=== PATIENT | male | born 1955 | race Caucasian/White ===

== ENCOUNTER → 2017-10-24 05:59 | Outpatient (CLI) | payer OTHER, SELFPAY ==
--- NOTE | 2017-10-24 | NM_ITS ---
SPECT MYOCARDIAL PERFUSION SCAN, REST AND STRESS: EXERCISE STRESS: [facility] REVIEW QGS EF AND WALL MOTION EVALUATION: QPS - PERFUSION EVALUATION: HISTORY: Chest pain PROCEDURE: Rest imaging performed after administration of10.47 millicuries Tc MIBI. Dose administered at6:15 a.m., with imaging thereafter. Stress imaging was then performed following7 minutes of exercise stress. The patient achieved a heart [id number] with projected heart rate of152 . Resting BP145/81 with stress 190/90. At maximum exercise stress,30.5 millicuries Tc MIBI administered at7:55 a.m. with [id number] minutes thereafter. FINDINGS: Perfusion Evaluation: The single slice spect images as well as the [facility] bull's-eye data summary were reviewed. Wall Motion and Ejection Fraction Evaluation: Gated SPECT review and analysis used to evaluate these features. There is a 53 % left ventricular ejection fraction. There seems to be good wall motion Stress images reveal decreased activity in the apex and inferior wall with improved activity in the inferior wall with rest and persistent decrease in apex and rest. Gated images calculated ejection fraction of 53% with apical hypokinesis. 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 Regional wall motion abnormality present. High risk abnormal stress test
--- NOTE | 2017-10-24 07:24 | HMH.ITSHM ---
asa losartan-hctz allopurinol lipitor fish oil b12
== END ==
PROVIDERS: Family Provider Internal Medicine Adolescent Medicine; PCP Internal Medicine Adolescent Medicine; Visit Provider Nurse Practitioner Family
DX: R07.9 Chest pain, unspecified (principal); R06.09 Other forms of dyspnea; E78.5 Hyperlipidemia, unspecified; I10 Essential (primary) hypertension
CPT/HCPCS: 78452; 93017; A9502

== ENCOUNTER → 2017-10-25 08:35 | Outpatient (CLI) | payer OTHER, SELFPAY ==
[2017-10-25 11:03] LABS: Anion Gap 8.1 mEq/L (5-15); Blood Urea Nitrogen 9 mg/dL (7-18); Carbon Dioxide 28 mmol/L (21.0-32.0); Chloride 101 mmol/L (98-107); Creatinine,Serum 0.97 mg/dL (0.70-1.30); Estimated Glomerular Filt Rate 79 ml/min (>60); GFR (African American) 95 ML/MIN (>60); Glucose 109 mg/dL (74-106); Sodium 133 mmol/L (136-145)
[2017-10-25 11:04] LABS: Potassium 4.1 mmoL/L (3.5-5.1)
== END ==
PROVIDERS: Visit Provider Nurse Practitioner Family
DX: E87.6 Hypokalemia (principal)
CPT/HCPCS: 36415; 80048

== ENCOUNTER 2017-11-11 15:17 | Outpatient (RCR) | payer OTHER, SELFPAY | END 2018-01-30 12:58 | disposition home or self-care (01) | LOC: PT 15:17 | PROVIDERS: Family Provider Internal Medicine Adolescent Medicine; PCP Internal Medicine Adolescent Medicine; Visit Provider Internal Medicine | DX: Z95.5 Presence of coronary angioplasty implant and graft (principal) | CPT/HCPCS: 93798 ==

== ENCOUNTER → 2018-02-10 16:01 | Outpatient (CLI) | payer OTHER, SELFPAY ==
[2018-02-10 16:03] LABS: Microscopic, Urine URINE MICROSCOPIC (MICROSCOPIC)
[2018-02-10 16:19] LABS: Appearance,Urine CLEAR (Clear); Bilirubin,Urine Negative (Negative); Blood, Urine Negative (Negative); Color,Urine YELLOW (Yellow); Glucose,Urine (UA) Negative (Negative); Ketones,Urine Negative (Negative); Leukocyte Esterase,Urine Negative (Negative); Nitrate,Urine Negative (Negative); Protein,Urine Negative (Negative); Specific Gravity, Urine <= 1.005 (1.005-1.030); Urobilinogen,Urine 0.2 EU/dl (0.2)
[2018-02-10 16:23] LABS: Basophils % 0.4 % (0.1-2.0); Eosinophils # 0.4 K/mm3 (0.0-0.4); Eosinophils % 6.1 % (0.1-12.0); Hematocrit 51.8 % (42.0-52.0); Hemoglobin 17.6 g/dL (14.1-18.0); Lymphocytes # 1.7 K/mm3 (0.7-4.5); Lymphocytes % 23.6 K/mm3 (10-50); Mean Corpuscular Hemoglobin 34.1 pg (27.0-31.2); Mean Corpuscular Volume 100.3 fl (80-94); Mean Platelet Volume 7.2 fl (7.4-10.4); Monocytes # 0.6 K/mm3 (0.1-1.0); Monocytes % 9.2 % (1.7-9.3); Neutrophils # 4.3 K/mm3 (1.8-7.8); Neutrophils % 60.7 % (37.0-80.0); Platelet Count 189 K/mm3 (142-424); Red Blood Count 5.17 M/mm3 (4.60-6.20); Red Cell Distribution Width 13.6 % (11.5-17.5)
[2018-02-10 16:58] LABS: Alanine Aminotransferase 124 U/L (12-78); Albumin Level 3.9 gm/dL (3.4-5.0); Alkaline Phosphatase 86 U/L (46-116); Aspartate Amino Transferase 72 U/L (15-37); Bilirubin,Direct 0.2 mg/dL (0.0-0.2); Bilirubin,Indirect 0.6 mg/dL (0.0-0.9); Bilirubin,Total 0.8 mg/dL (0.2-1.0); Chol/HDL Ratio 3.3 (1-3.5); Cholesterol 143 mg/dL (140-200); HDL Cholesterol 44 mg/dL (27-67); LDL Cholesterol 71 mg/dL (0-130); Total Protein,Serum 7.7 gm/dL (6.4-8.2); Triglycerides 142 mg/dL (30-200); VLDL Cholesterol 28 mg/dL (0-40)
== END ==
PROVIDERS: Family Provider Internal Medicine Adolescent Medicine; PCP Internal Medicine Adolescent Medicine; Visit Provider Internal Medicine
DX: E78.4 Other hyperlipidemia (principal); D75.1 Secondary polycythemia; E78.5 Hyperlipidemia, unspecified; I11.9 Hypertensive heart disease without heart failure; I25.10 Atherosclerotic heart disease of native coronary artery without angina pectoris
CPT/HCPCS: 36415; 80061; 80076; 81001; 85025

== ENCOUNTER → 2018-02-18 13:10 | Outpatient (CLI) | payer OTHER, SELFPAY ==
--- NOTE | 2018-02-18 13:30 | US_ITS ---
US kidney retroperitoneal comp Ordering Physician: Lee Askew MD Patient Age: 62 years: Male HISTORY: ITS.REASON: htn TECHNIQUE: Ultrasound both kidneys COMPARISON : Ultrasound right upper quadrant August 2015 FINDINGS . No hydronephrosis nor mass either kidney.. Cortex well-maintained. Bilateral Adequate color Doppler flow both kidneys. Right kidney: 11.2 cm length as 5.2 cm x 6.5 cm. Left kidney: . 11.6 cm length x 6.4 cm x 6.2 cm. Limited images of the spleen appears satisfactory.. Likely fatty changes at the partially imaged liver ----IMPRESSION: 1. Unremarkable Kidneys bilateral. Appear normal in size & configuration bilaterally. No hydronephrosis nor mass. Cortex well-maintained
== END ==
PROVIDERS: Family Provider Internal Medicine Adolescent Medicine; PCP Internal Medicine Adolescent Medicine; Visit Provider Internal Medicine
DX: D75.1 Secondary polycythemia (principal); E78.5 Hyperlipidemia, unspecified; I11.9 Hypertensive heart disease without heart failure; I25.10 Atherosclerotic heart disease of native coronary artery without angina pectoris
CPT/HCPCS: 76770

== ENCOUNTER → 2018-08-25 09:53 | Outpatient (CLI) | payer OTHER, SELFPAY ==
[2018-08-25 10:27] LABS: Troponin I < 0.02 ng/ml (0.00-0.06)
[2018-08-25 10:38] LABS: Basophils % 0.4 % (0.1-2.0); Eosinophils # 0.4 K/mm3 (0.0-0.4); Eosinophils % 5.4 % (0.1-12.0); Lymphocytes # 1.7 K/mm3 (0.7-4.5); Lymphocytes % 21.7 % (10-50); Mean Corpuscular HGB Conc 35.3 g/dL (31.8-35.4); Mean Corpuscular Volume 96.3 fl (80-94); Mean Platelet Volume 7.4 fl (7.4-10.4); Monocytes # 0.5 K/mm3 (0.1-1.0); Monocytes % 6.6 % (1.7-9.3); Neutrophils # 5.1 K/mm3 (1.8-7.8); Neutrophils % 65.9 % (37.0-80.0); Platelet Count 192 K/mm3 (142-424); Red Cell Distribution Width 13.5 % (11.5-17.5); White Blood Count 7.7 K/mm3 (4.8-10.8)
[2018-08-25 11:08] LABS: Anion Gap 14.4 mEq/L (5-15); Blood Urea Nitrogen 9 mg/dL (7-18); Calcium 9.9 mg/dL (8.5-10.1); Carbon Dioxide 28 mmol/L (21.0-32.0); Chloride 104 mmol/L (98-107); Creatinine,Serum 0.83 mg/dL (0.70-1.30); Estimated Glomerular Filt Rate 94 ml/min (>60); GFR (African American) 114 ML/MIN (>60); Glucose 104 mg/dL (74-106); Potassium 4.4 mmoL/L (3.5-5.1); Sodium 142 mmol/L (136-145)
== END ==
PROVIDERS: Visit Provider Nurse Practitioner Family
DX: R07.9 Chest pain, unspecified (principal); E78.5 Hyperlipidemia, unspecified; I11.9 Hypertensive heart disease without heart failure; I25.10 Atherosclerotic heart disease of native coronary artery without angina pectoris
CPT/HCPCS: 36415; 80048; 84484; 85025

== ENCOUNTER → 2018-09-18 06:58 | Outpatient (CLI) | payer OTHER, SELFPAY ==
--- NOTE | 2018-09-18 06:59 | NM_ITS ---
SPECT MYOCARDIAL PERFUSION SCAN, REST AND STRESS: EXERCISE STRESS: [facility] REVIEW QGS EF AND WALL MOTION EVALUATION: QPS - PERFUSION EVALUATION: HISTORY: ANGINA PROCEDURE: Rest imaging performed after administration of10.64 millicuries Tc MIBI. Dose administered at7:10AM a.m., with imaging thereafter. Stress imaging was then performed following7 minutes 30 seconds of exercise stress. The patient achieved a heart [id number] with projected heart rate of118 . Resting BP157/101 with stress 205/100. At maximum exercise stress,32.5 millicuries Tc MIBI administered at8:50 a.m. with [id number] minutes thereafter. FINDINGS: Perfusion Evaluation: The single slice spect images as well as the [facility] bull's-eye data summary were reviewed. Wall Motion and Ejection Fraction Evaluation: Gated SPECT review and analysis used to evaluate these features. There is a 51 % left ventricular ejection fraction. There seems to be good wall motion SPECT images reveal uniform myocardial activity with both stress and rest IMPRESSION: No scintigraphic evidence of exercise-induced myocardial ischemia with normal ejection fraction normal wall motion
--- NOTE | 2018-09-18 08:42 | HMH.ITSHM ---
Current Home Medications as stated by this patient Yadiel Chávez or dental detail representative. [] losartan clopidogrel atorvastatin asa allopurinol
== END ==
PROVIDERS: PCP Internal Medicine Adolescent Medicine; Visit Provider Internal Medicine
DX: I20.8 Other forms of angina pectoris (principal); I25.10 Atherosclerotic heart disease of native coronary artery without angina pectoris
CPT/HCPCS: 78452; 93017; 93306; A9502

== ENCOUNTER → 2019-04-02 09:30 | Outpatient (CLI) | payer OTHER, SELFPAY ==
--- NOTE | 2019-04-02 09:32 | CA_ITS ---
APPROVED REPORT [employer] Window [employer]sman: CT Laterality: Bilateral Study Quality: Poor, Due to limited ultrasound windows. Indications: right carotid bruit Doppler Spectral Velocity Analysis ECA (R) 79.90/17.10 cm/s dICA (L) 41.60/14.80 cm/s pICA (R) 64.80/16.90 cm/s Nidhi (L) 44.40/15.50 cm/s dCCA (R) 91.80/14.00 cm/s pICA (L) 58.60/19.60 cm/s pCCA (R) 77.60/13.60 cm/s dCCA (L) 89.90/19.30 cm/s Vert (R) 51.60/12.30 cm/s pCCA (L) 107.00/22.40 cm/s Findings Duplex evaluation demonstrates stenosis of the right proximal internal carotid artery in the range of 20-49%. Right mid and distal ICA unable to visualize well due to shadowing. Duplex evaluation demonstrates stenosis of the left proximal internal carotid artery in the range of 20-49%. ICA/CCA ratio <4.0 Conclusion Duplex evaluation demonstrates stenosis of the right proximal internal carotid artery in the range of 20-49%. Right mid and distal ICA unable to visualize well due to shadowing. Duplex evaluation demonstrates stenosis of the left proximal internal carotid artery in the range of 20-49%. ICA/CCA ratio <4.0 Electronically signed by : Demar Mckeon MD 04/02/2019 18:12:00
== END ==
PROVIDERS: PCP Internal Medicine Adolescent Medicine; Visit Provider Physician Assistant
DX: R09.89 Other specified symptoms and signs involving the circulatory and respiratory systems (principal)
CPT/HCPCS: 93880

== ENCOUNTER → 2019-11-26 08:09 | Outpatient (CLI) | payer OTHER, SELFPAY ==
[2019-11-26 11:43] LABS: Coronavirus 19 IgG Antibody Negative (Negative); Coronavirus 19 IgM Antibody Negative (Negative)
== END ==
PROVIDERS: Visit Provider Internal Medicine Gastroenterology
DX: Z01.818 Encounter for other preprocedural examination (principal)
CPT/HCPCS: 36415; 86328

== ENCOUNTER 2019-11-29 06:55 | Day surgery (SDC) | payer OTHER, SELFPAY ==
[2019-11-23 09:45] VITALS: BMI 27.6
[2019-11-29 07:13] VITALS: BP 140/76; PULSE 73; RESP 18; TEMP 36.6; O2SAT 98
[2019-11-29 08:02] VITALS: O2SAT 97
--- NOTE | 2019-11-29 08:02 | HMH.PROC ---
[facility] Procedure Note Procedure Note:: Colonoscopy Procedure Report: Colonoscopy with cold snare polypectomy and snare cautery polypectomy Endoscopist: Deejay Chavez II, MD Referring physician: WILLIS Portillo Date of Procedure: November 29, 2019 Equipment: Olympus 180 variable stiffness pediatric colonoscope Sedation: MAC sedation Indication: Mr. Chávez is a 64-year-old gentleman who is here for follow-up screening/surveillance colonoscopy secondary to a personal history of colon polyps. The patient did have a colonoscopy 7 years ago (Dr. Constantine Middleton) at which time 5 colon polyps were removed. The patient reports no abdominal pain, weight loss, change in his bowel habits or rectal bleeding. He reports no family history of colon cancer. He does have intermittent diarrhea/bowel urgency which he attributes to his prior cholecystectomy. Procedure: Prior to the procedure, a history and physical exam was performed, and patient's medications and allergies were reviewed. The risks, benefits and alternatives of the sedation and procedure were discussed with the patient. All questions were answered and informed consent was obtained. The patient was brought to the procedure room. Patient identification and proposed procedure were verified by the physician and the nurse. The patient was placed in a left lateral decubitus position and the scope was passed under direct vision. Throughout the procedure, the patient's blood pressure, pulse, and oxygen saturations were monitored continuously. The colonoscopy was accomplished without difficulty. The patient tolerated the procedure well. Findings: On digital rectal examination there was normal rectal tone. There were no external hemorrhoids. The prostate was 2+, smooth, soft, symmetric without nodules. The colonoscope was introduced through the anal canal to the rectum and advanced to the cecum. The ileocecal valve and appendiceal orifice were identified. The scope was advanced a short distance into the ileum which appeared grossly normal. The scope was then withdrawn into the colon. The cecum was normal. There were a total of 9 colon polyps removed (ascending x2 (3 and 4 mm), transverse x1 (5 mm), descending x4 (3, 4, 4 and 8 mm) and sigmoid x2 (4 and 11 mm)). All of these were removed via cold snare polypectomy except for the 11 mm polyp that was on a stalk and this was removed via snare cautery. There were scattered diverticuli throughout the descending and sigmoid colon (LEFT colon). The rectum itself was normal. Upon retroflexion within the rectum there were grade 1-2 internal hemorrhoids. The preparation was excellent throughout with [place] Preparation Score of 9. The cecal time was 13 minutes. Impression: 1. Colonic polyps x9 (ranging in size from 3 to 11 mm) 2. Left-sided diverticulosis 3. Grade 1-2 internal hemorrhoids Plan: I will follow up the polyp pathology and recommend repeat colonoscopy again in 2-3 years based upon the polyp histology. I would encourage fiber supplementation on a long-term daily maintenance basis.
[2019-11-29 08:35] VITALS: BP 114/71; PULSE 65; RESP 16; TEMP 36.1; O2SAT 95
[2019-11-29 08:45] VITALS: BP 127/76; PULSE 66; RESP 16; O2SAT 96
--- NOTE | 2019-11-29 08:49 | P.PN_ITS ---
[facility] Anesthesia Checklist - Structural Data Admitted From: Home Planned Operative Procedure/s: colonoscopy Consent for Planned Operative Procedure(s) Verified: Yes - Airway Assessment C-Spine Mobility Assessed: Yes TMJ Mobility Assessed: Yes Dentition: Good Dentition - Neurological Assessment Level of Consciousness: Awake, Alert, Appropriate - Anesthesia Plan Anesthesia Risk discussed: Yes Anesthesia Plan: Verified ASA Class: II Anesthesia Type: MAC [facility] History I have reviewed the patient's past medical history: Yes Medical History: Reports:: Coronary Artery Disease, Hyperlipidemia, Hypertension Denies:: Cancer, Diabetes Mellitus Type 1, Diabetes Mellitus Type 2, Internal Pacemaker, MRSA, Seizures *Have you ever received a pneumonia vaccine?: No *Have you received a flu vaccine this season?: No Other Medical History: Reports: Other Anesthesia experience/problems:: none Other Surgeries: Yes: Cardiac Catheterization, Cholecystectomy, Coronary Stent, Other (Neck Fusion). No: Pacemaker Amputation: No Fractures: No - *Social History Educational Level: Completed High School Smoking Status: Never smoker Alcohol Intake: current Alcohol Intake Frequency:: holidays/special occasions only Substance Use Type: denies use *Occupational Status:: retired Housing: house Household Members: spouse *Travel in the last 8 weeks: None Family Hx:: Coronary Artery Disease
[2019-11-29 08:55] VITALS: BP 132/86; PULSE 59; RESP 16; O2SAT 96
[2019-11-29 09:05] VITALS: BP 132/89; PULSE 62; RESP 14; TEMP 36.1; O2SAT 97
== END 2019-11-29 09:16 | disposition home or self-care (01) ==
LOC: OUTP 06:57
PROVIDERS: PCP Internal Medicine Adolescent Medicine; Visit Provider Internal Medicine Gastroenterology
PROC: 0DJD8ZZ Inspection of Lower Intestinal Tract, Via Natural or Artificial Opening Endoscopic (ICD-10-PCS; CPT 45378; principal; 2019-11-29 08:00)
DX: K63.5 Polyp of colon (principal); K57.30 Diverticulosis of large intestine without perforation or abscess without bleeding; K64.0 First degree hemorrhoids; Z12.11 Encounter for screening for malignant neoplasm of colon; Z86.010 Personal history of colon polyps; I25.10 Atherosclerotic heart disease of native coronary artery without angina pectoris; I10 Essential (primary) hypertension; E78.5 Hyperlipidemia, unspecified; M10.9 Gout, unspecified; Z90.49 Acquired absence of other specified parts of digestive tract; Z95.818 Presence of other cardiac implants and grafts; Z79.899 Other long term (current) drug therapy
CPT/HCPCS: 45385; J2704

== ENCOUNTER → 2020-05-12 09:03 | Outpatient (CLI) | payer OTHER, SELFPAY ==
--- NOTE | 2020-05-12 09:04 | CA_ITS ---
APPROVED REPORT Senior Financial: Paloma Dodd RVT Laterality: Bilateral Study Quality: Adequate Indications: right bruit Doppler Spectral Velocity Analysis ECA (R) 62.70/9.10 cm/s ECA (L) 79.80/15.20 cm/s dICA (R) 91.40/28.10 cm/s dICA (L) 78.80/31.30 cm/s Nidhi (R) 81.60/26.80 cm/s Nidhi (L) 68.00/23.00 cm/s pICA (R) 75.40/16.30 cm/s pICA (L) 24.40/6.80 cm/s dCCA (R) 110.10/17.10 cm/s dCCA (L) 82.90/18.30 cm/s pCCA (R) 104.80/10.70 cm/s pCCA (L) 73.80/12.40 cm/s Vert (R) 37.20/7.20 cm/s Vert (L) 38.70/11.30 cm/s ICA/CCA 0.83 ICA/CCA 0.95 Findings Study suggests 20-49% stenosis of the right internal cartoid artery unchanged from the 04/02/19 study. Study suggests 20-49% stenosis of the left internal cartoid artery unchanged from the 04/02/19 study. Antegrade flow seen bilateral vertebral arteries. 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 Study suggests 20-49% stenosis of the left internal cartoid artery unchanged from the 04/02/19 study. Antegrade flow seen bilateral vertebral arteries. Electronically signed by : Demar Mckeon MD 05/12/2020 16:03:55
== END ==
PROVIDERS: PCP Internal Medicine Adolescent Medicine; Visit Provider Urology
DX: I65.23 Occlusion and stenosis of bilateral carotid arteries (principal); R09.89 Other specified symptoms and signs involving the circulatory and respiratory systems
CPT/HCPCS: 93880

== ENCOUNTER 2020-09-24 11:47 | Emergency (ER) | payer OTHER, SELFPAY ==
[2020-09-24 11:52] VITALS: BP 132/82; PULSE 81; RESP 17; TEMP 36.9; O2SAT 96; BMI 27.6
--- NOTE | 2020-09-24 12:04 | HMH.EDUTC ---
[facility] [place] Clinical Impression: Bronchitis Disposition: Home, Self-Care Condition on Discharge: Good Instructions: DI for Acute Bronchitis Additional Instructions: You have been tested for COVID19. Please isolate as if you are positive until those results are received. Follow up with Dr Esteves if you are not improving. Prescriptions: Guaifenesin/Dextromethorphan [Mucinex Dm ER 1,200-60 mg Tab] 1 tab PO BID 10 Days #20 tab Transmission Status: Pending to [email or web address] # predniSONE [Prednisone 20mg Tab] 20 mg PO BID 5 Days #10 tab Transmission Status: Pending to [email or web address] # Azithromycin [Zithromax 250mg tab] 250 mg PO DIRECTED #6 tab Transmission Status: Pending to [email or web address] # Referrals: Ulises Esteves MD [Primary Care Provider] - Time of Disposition: 12:12 Medical Decision Making - Joe Inquiry Pt receiving controlled substance: No [facility] [place]PI - General Stated complaint: Cough ZAMBRANO ears hurt Time Seen by Provider: 09/24/20 12:04 - History of Present Illness Provider Complaint: Cough, congestion, body aches/chills/possible fever last night. Slept in recliner due to cough. Does not smoke but gets bronchitis once a year. Cough is productive. No vomiting or diarrhea. No known exposure to COVID19. Onset (ago): day(s) (1) Location: chest Radiation: non-radiation Relieving factors: none Exacerbating factors: none Associated symptoms: cough, fever/chills, headaches, malaise Treatments prior to arrival: none - Related Data Home Medications Medication Instructions Recorded Confirmed Aspirin [Aspir 81] 81 mg PO DAILY 10/23/17 05/19/20 [place]-3 Fatty Acids [Fish Oil] 300 mg PO DAILY 10/23/17 05/19/20 allopurinoL [Allopurinol 100mg 100 mg PO DAILY 10/23/17 05/19/20 tablet] atorvastatin 20 mg tablet 20 mg PO DAILY tab 10/30/17 05/19/20 Multivitamin [Multivitamins] 1 tab PO DAILY 11/23/19 05/19/20 Previous Rx's Medication Instructions Recorded sildenafil (pulm.hypertension) 20 20 mg PO DAILY PRN #90 tab 03/26/19 mg tablet hydrochlorothiazide 12.5 mg tablet See Rx Instructions .ROUTE 08/16/20 .COMPLEX #30 tab losartan 100 mg tablet See Rx Instructions .ROUTE 08/16/20 .COMPLEX #30 tab Azithromycin [Zithromax 250mg 250 mg PO DIRECTED #6 tab 09/24/20 tab] Guaifenesin/Dextromethorphan 1 tab PO BID 10 Days #20 tab 09/24/20 [Mucinex Dm ER 1,200-60 mg Tab] predniSONE [Prednisone 20mg 20 mg PO BID 5 Days #10 tab 09/24/20 Tab] Allergies Allergy/AdvReac Type Severity Reaction Status Date / Time promethazine [From PHENERGAN] Allergy Intermediate SKIN Verified 05/19/20 10:28 [facility] History - Hepatitis A Screen Attestation statement:: This patient has been screened for Hepatitis A risk factors. I have reviewed the patient's past medical history: Yes Medical History: Reports:: Coronary Artery Disease, Hyperlipidemia, Hypertension Denies:: Cancer, Diabetes Mellitus Type 1, Diabetes Mellitus Type 2, Internal Pacemaker, MRSA, Seizures Other Medical History: Reports: Other Comment: Gout Other Surgeries: Yes: Cardiac Catheterization, Cholecystectomy, Coronary Stent, Other (Neck Fusion). No: Pacemaker Amputation: No Fractures: No - Social History Smoking Status: Never smoker Alcohol Intake: current Alcohol Intake Frequency:: holidays/special occasions only Substance Use Type: denies use Occupational Status: retired Housing: house Household Members: spouse Family Hx:: Coronary Artery Disease ROS Obtained: Yes All systems reviewed & no additional complaints - Constitutional Constitutional: Reports body ache, Reports chills, Reports fever(s), Reports headache(s), Reports malaise - ENT Ears, Nose, Mouth, and Throat: Reports nasal congestion - Respiratory Respiratory: Reports chest congestion, Reports cough Physical Exam - General General appearance: alert, in no apparent distress - Hea
[2020-09-24 12:10] VITALS: BP 132/82; PULSE 81; RESP 17; TEMP 36.9; O2SAT 96
--- NOTE | 2020-09-24 16:50 | PC.NURSE ---
Pt was called and given results of Covid test Positive.
== END 2020-09-24 12:14 | disposition home or self-care (01) ==
PROVIDERS: Emergency Provider Physician Assistant; PCP Internal Medicine Adolescent Medicine
DX: U07.1 COVID-19 (principal); J20.9 Acute bronchitis, unspecified; I25.10 Atherosclerotic heart disease of native coronary artery without angina pectoris; I10 Essential (primary) hypertension; E78.5 Hyperlipidemia, unspecified; Z79.899 Other long term (current) drug therapy
CPT/HCPCS: 99202; G0463; U0003

== ENCOUNTER → 2020-10-13 08:15 | Outpatient (CLI) | payer OTHER, SELFPAY ==
[2020-10-13 08:41] LABS: Basophils % 0.5 % (0.1-2.0); Eosinophils # 0.3 K/mm3 (0.0-0.4); Hematocrit 47.2 % (42.0-52.0); Hemoglobin 16.6 g/dL (14.1-18.0); Lymphocytes # 1.4 K/mm3 (0.7-4.5); Lymphocytes % 20.1 % (10-50); Mean Corpuscular HGB Conc 35.2 g/dL (31.8-35.4); Mean Corpuscular Hemoglobin 34.6 pg (27.0-31.2); Mean Corpuscular Volume 98.2 fl (80-94); Mean Platelet Volume 7.4 fl (7.4-10.4); Monocytes # 0.4 K/mm3 (0.1-1.0); Monocytes % 6.2 % (1.7-9.3); Neutrophils # 4.6 K/mm3 (1.8-7.8); Neutrophils % 68.2 % (37.0-80.0); Platelet Count 189 K/mm3 (142-424); Red Blood Count 4.81 M/mm3 (4.60-6.20); Red Cell Distribution Width 13.2 % (11.5-17.5); White Blood Count 6.7 K/mm3 (4.8-10.8)
[2020-10-13 09:11] LABS: Alanine Aminotransferase 34 U/L (12-78); Albumin Level 4.3 g/dl (3.5-5.0); Albumin/Globulin Ratio 1.6 (1.1-1.8); Alkaline Phosphatase 85 U/L (38-126); Anion Gap 9.4 mEq/L (5-15); Aspartate Amino Transferase 36 U/L (17-59); Bilirubin,Total 1.1 mg/dl (0.2-1.3); Blood Urea Nitrogen 5 mg/dl (9-20); Calcium 9.9 mg/dl (8.4-10.2); Carbon Dioxide 30 mmol/L (22.0-30.0); Chloride 105 mmol/L (98-107); Chol/HDL Ratio 4.9 (1-3.5); Cholesterol 127 mg/dl (140-200); Estimated Glomerular Filt Rate 97 ml/min (>60); GFR (African American) 118 ML/MIN (>60); Globulin 2.7 g/dL (1.3-3.2); Glucose 95 mg/dl (74-100); HDL Cholesterol 26 mg/dl (40-60); Potassium 4.4 mmoL/L (3.5-5.1); Sodium 140 mmol/L (136-145); Triglycerides 186 mg/dl (30-150); Uric Acid 5.2 mg/dl (3.5-8.5); VLDL Cholesterol 37 mg/dL (0-40)
[2020-10-13 09:22] LABS: Direct LDL Cholesterol 62.52 mg/dL (100-129)
[2020-10-13 10:00] LABS: Vitamin B12 985 pg/mL (239-931)
== END ==
PROVIDERS: Visit Provider Nurse Practitioner Family
DX: I25.10 Atherosclerotic heart disease of native coronary artery without angina pectoris (principal); I10 Essential (primary) hypertension; E79.0 Hyperuricemia without signs of inflammatory arthritis and tophaceous disease; E53.8 Deficiency of other specified B group vitamins
CPT/HCPCS: 36415; 80053; 80061; 82607; 84550; 85025

== ENCOUNTER 2020-12-29 07:39 | Emergency (ER) | payer MEDICARE, OTHER, SELFPAY ==
[2020-12-29] VITALS (8 sets, daily range): BP systolic 118–163; BP diastolic 80–98; PULSE 56–70; RESP 16; TEMP 36.6; O2SAT 94–98; BMI 27.6
--- NOTE | 2020-12-29 07:39 | ECG_ITS ---
APPROVED REPORT Exam: Resting ECG HR:63 bpm ECG Measurements Heart Rate 63 AXES KS 174 P 22 QRSd 96 QRS -23 QT 432 T 27 QTc 442 Conclusion Normal sinus rhythm Moderate voltage criteria for LVH, may be normal variant Borderline ECG Electronically signed by : Ulises Esteves, 12/31/2020 21:08:32
--- NOTE | 2020-12-29 07:47 | XR_ITS ---
PROCEDURE: XR CHEST PORTABLE CLINICAL HISTORY: CHEST PAIN COMPARISON: CR [id number] XR chest portable from 10/23/2017 FINDINGS: The cardiomediastinal silhouette and pulmonary vascularity are within normal limits. Minimal atelectatic changes are present in the left lung base. The remaining lungs are clear. No acute bony abnormalities. IMPRESSION: Minimal left basilar atelectasis Dictated by: Demar Mckeon MD 12/29/2020 09:58 Demar Mckeon MD in [place] 12/29/2020 09:58
--- NOTE | 2020-12-29 07:55 | HMH.EDGENADL ---
ED Disposition Clinical Impression: Chest pain Qualifiers: Chest pain type: unspecified Qualified Code(s): R07.9 - Chest pain, unspecified Disposition: Home, Self-Care Condition on Discharge: Good Instructions: DI for Atypical Chest Pain Referrals: Provider,MD Shanique [Referring] - 3 days Lee Askew MD [Staff Physician] - 3 days Time of Disposition: 11:15 - Critical Care Critical Care Time: No Attestation: On 12/29/20, the high probability of a clinically significant, sudden or life threatening deterioration of the following system(s) required my full and direct attention, intervention and personal management. The time I documented below is in addition to time spent performing reported procedures but includes the following listed in this critical care notation. Medical Decision Making - Medical Records Medical records reviewed: Yes: I reviewed the patient's medical records. - Joe Inquiry Pt receiving controlled substance: No Vital Signs: 12/29/20 07:42 12/29/20 08:30 Temperature 97.8 F Temperature Source Oral Pulse Rate 62 Pulse Rate [Radial] 70 Respiratory Rate 16 16 Blood Pressure 127/80 Blood Pressure [Right Arm] 163/98 H Blood Pressure Mean 95 Blood Pressure Mean [Right Arm] 119 Blood Pressure Position [Right Arm] Sitting 02 Sat by Pulse Oximetry 98 96 Oxygen Delivery Method Room Air Room Air - Lab Data Lab results reviewed: Yes: I reviewed the patient's lab results. Lab Results 12/29/20 07:49: WBC 6.9, RBC 5.13, Hgb 17.8, Hct 50.0, MCV 97.5 H, MCH 34.7 H, MCHC 35.6 H, RDW 13.8, Plt Count 167, MPV 8.2, Neut % (Auto) 62.2, Lymph % (Auto) 24.9, [place] % (Auto) 7.3, Eos % (Auto) 5.0, Baso % (Auto) 0.6, Neut # (Auto) 4.3, Lymph # (Auto) 1.7, [place] # (Auto) 0.5, Eos # (Auto) 0.4, Baso # (Auto) 0.0 12/29/20 07:49: Sodium 138, Potassium 3.8, Chloride 104, Carbon Dioxide 26, Anion Gap 11.8, BUN 5 L, Creatinine 0.80, Estimated Creat Clear 102, Estimated GFR 97, Est GFR ( Amer) 117, Glucose 121 H, Calcium 8.9, Troponin I < 0.01 12/29/20 10:10: Troponin I < 0.01 Result diagrams: 12/29/20 07:49 12/29/20 07:49 Orders (Tests/Meds): ED MEDICATIONS Discontinued Medications Generic Name Dose Route Start Last Admin Trade Name Teofilo PRN Reason Stop Dose Admin Aspirin 324 mg 12/29/20 07:53 12/29/20 07:56 Aspirin 81mg Chewable Tablet PO 12/29/20 07:54 324 mg ONCE ONE Administration ORDERS Category Date Time Status Troponin I Q3H Lab 12/29/20 14:00 Ordered - Radiology Data #1 Image(s): Chest Image Reviewed: Yes I reviewed the patient's radiology results Preliminary Findings: Normal/NAD - ECG Data Tracing #1 I reviewed this ECG and interpreted as documented below: Normal sinus rhythm, 63 bpm, no ST elevation or depression, no ectopy, normal intervals. ECG initial impression date: 12/29/20 ECG initial impression time: 07:40 - CHUY Score for Non-Stemi Age of Patient: 60-69 years old Heart Rate: 50-69 bpm Systolic Blood Pressure: 160-199 mmHg Serum Creatinine: 0.80-1.19 mg/dl CHF [place] Class: I-No CHF Other Risk Factors: None Non-Stemi Risk Score: 78 Medical Decision Narrative: 65yo M evaluated for epigastric chest pain. Patient is in no acute distress on initial evaluation. He believes his symptoms are related to heartburn. Routine cardiac work-up is been initiated. EKG is reviewed as above and unremarkable. Chest x-ray is benign. CBC, BMP, troponin are all within normal limits. Will repeat troponin at 2 hours. Patient is already established with Dr. Askew and has a local PCP. Repeat troponin is negative. Patient seema asymptomatic at this time. He is appropriate stable for discharge home. Follow-up PCP/Dr. Askew next week. General Adult HPI - General Chief complaint: Chest Pain Stated complaint: chest pain Time Seen by Provider: 12/29/20 07:55 Mode of Arrival: Ambulatory Limitations: No Limitations Description
[2020-12-29 07:58] LABS: Basophils % 0.6 % (0.1-2.0); Eosinophils # 0.4 K/mm3 (0.0-0.4); Hemoglobin 17.8 g/dL (14.1-18.0); Lymphocytes # 1.7 K/mm3 (0.7-4.5); Lymphocytes % 24.9 % (10-50); Mean Corpuscular HGB Conc 35.6 g/dL (31.8-35.4); Mean Corpuscular Hemoglobin 34.7 pg (27.0-31.2); Mean Corpuscular Volume 97.5 fl (80-94); Mean Platelet Volume 8.2 fl (7.4-10.4); Monocytes # 0.5 K/mm3 (0.1-1.0); Monocytes % 7.3 % (1.7-9.3); Neutrophils # 4.3 K/mm3 (1.8-7.8); Neutrophils % 62.2 % (37.0-80.0); Platelet Count 167 K/mm3 (142-424); Red Blood Count 5.13 M/mm3 (4.60-6.20); Red Cell Distribution Width 13.8 % (11.5-17.5); White Blood Count 6.9 K/mm3 (4.8-10.8)
[2020-12-29 08:11] LABS: Anion Gap 11.8 mEq/L (5-15); Blood Urea Nitrogen 5 mg/dl (9-20); Calcium 8.9 mg/dl (8.4-10.2); Carbon Dioxide 26 mmol/L (22.0-30.0); Chloride 104 mmol/L (98-107); Creatinine Clearance Estimated 102 mL/min (50-200); Estimated Glomerular Filt Rate 97 ml/min (>60); GFR (African American) 117 ML/MIN (>60); Glucose 121 mg/dl (74-100); Potassium 3.8 mmoL/L (3.5-5.1); Sodium 138 mmol/L (136-145)
[2020-12-29 08:25] LABS: Troponin I < 0.01 ng/ml (0.00-0.034)
[2020-12-29 11:11] LABS: Troponin I < 0.01 ng/ml (0.00-0.034)
== END 2020-12-29 11:25 | disposition home or self-care (01) ==
PROVIDERS: Emergency Provider Family Medicine; PCP Internal Medicine Adolescent Medicine
DX: R07.9 Chest pain, unspecified (principal); R10.13 Epigastric pain; I25.10 Atherosclerotic heart disease of native coronary artery without angina pectoris; E78.5 Hyperlipidemia, unspecified; I10 Essential (primary) hypertension; Z86.16 Personal history of COVID-19
CPT/HCPCS: 71045; 80048; 84484; 85025; 93005; 99283

== ENCOUNTER → 2021-01-11 06:09 | Outpatient (CLI) | payer MEDICARE, OTHER, SELFPAY ==
--- NOTE | 2021-01-11 06:11 | CA_ITS ---
APPROVED REPORT EXAM: Comprehensive 2D, Doppler, and color-flow Echocardiogram Loading Unit Operator Powder Charging: Paloma Dodd RVT Ht: 6 ft 2 in Wt: 217lbs BSA: 2.25 BP: 123/74 mmHg Indications: CP,CAD,POLYCYTHEMIA,HLD,HTN 2D Dimensions LVOT 2.45 cm (M/F) 1.5-2.5 LA Volume 20.50 mL LA Volume Index 9.11 mL/m2 (M/F) 16-34 M-Mode Dimensions RVDd 1.60 cm (0.9-2.6) LA Diam 3.64 cm (1.9-4.0) LVDd 4.86 cm (3.5-5.7) Ao Diam 3.41 cm (2.0-3.7) LVDs 3.15 cm (3.5-5.7) IVSd 0.84 cm (0.6-1.1) PWd 1.25 cm (0.6-1.1) EF (Teich) 64.40% FS 35.20% EDV (Teich) 110.70 mL TAPSE 2.13 (<1.7) ESV (Teich) 39.40 mL LV Diastology E Decel Time 227.00 (160-240 msec) E/A Ratio 0.7 MED E' 6.60 (< 7 cm/sec) E'/MED E' Ratio 6.92 (>14) LAT E' 10.20 (<10 cm/sec) E/LAT E' Ratio 4.48 (>14) Aortic Valve AO Peak GR. 2.50 mmHg Mitral Valve MV E Max Fuad. 46.00 (40-130 cm/s) MV A Velocity 62.00 (40-130 cm/s) E/A Ratio 0.74 MV Decel. Time 227.00 (160-240 ms) MV PHT 66.00 ms Pulmonary Valve PV Peak Velocity 74.00 (50-150 cm/s) Tricuspid Valve TR P. Velocity 170.00 cm/s RAP Estimate 10.00 mmHg RVSP 21.60 mmHg Left Ventricle Left atrium is mildly enlarged, left ventricle is normal size, mild concentric left ventricular hypertrophy, visually estimated ejection fraction 55% with no regional wall motion abnormality, grade 1 diastolic dysfunction seen without tissue Doppler evidence of raise left atrial pressure. Right Ventricle Right atrium and right ventricle are normal size and contractility. Aortic Valve Aortic valve is minimally thickened and fibrosed, there is no aortic stenosis or aortic insufficiency. Mitral Valve Mitral valve grossly normal, there is trace mitral regurgitation. Tricuspid Valve Tricuspid valve grossly normal, there is trace tricuspid regurgitation, tricuspid regurgitation jet velocity is inadequate for calculation of the right ventricular systolic pressure. Pulmonic Valve Pulmonic valve is poorly visualized. Great Vessels Aortic root is normal size. Inferior vena cava is normal size with normal inspiratory collapse. Pericardium No significant pericardial effusion noted. Conclusion 1. Mildly enlarged left atrium, normal left ventricular size, mild concentric left ventricular hypertrophy, visually estimated ejection fraction 55% with no regional wall motion abnormality, grade 1 diastolic dysfunction seen without tissue Doppler evidence of raise left atrial pressure. 2. Trace mitral and tricuspid regurgitation. 3. No significant pericardial effusion noted. Electronically signed by : Tien Jacinto MD 01/12/2021 13:06:22
--- NOTE | 2021-01-11 06:11 | NM_ITS ---
APPROVED REPORT Exam: Nuclear Stress Test Indication: chest pain Patient Location: Outpatient Stress Tech: Bianca Jones [place] Tech:NATALIA Santoyo RT(R)(N) Ht: 6 ft 2 in Wt: 215 lbs HR: 71 bpm BP: 139/82 mmHg BSA: 2.24 m2 BMI: 27.6 Procedure: Patient received a 0.4 mg of intravenous Lexiscan, resting heart rate 71 bpm, resting blood pressure 139/82 mmHg, with Lexiscan maximum heart rate achived was 96 bpm which is Less than 85 % of the maximum predicted heart rate and blood pressure was 157/92 mmHg. With Lexiscan, patient denied any complaint of chest pain. Electrocardiogram Resting electrocardiogram showed sinus rhythm, with Lexiscan there is less than 1.[address] segment depression noted from the baseline EKG. The EKG portion of the Lexiscan is nondiagnostic. Cardiac Stress and Resting SPECT Images: Cardiac Stress and Resting SPECT images were obtained using technetium 99m Myoview 31.0 mCi stress and 10.29 mCi at rest. Gated SPECT for analysis of segmental wall motion and calculation of the ejection fraction also done. Prone images were also obtained. Cardiac stress and resting SPECT images show uniform myocardial activity without segmental perfusion abnormality, computer derived ejection fraction is 51% with no regional wall motion abnormality, right ventricle is normal size and contractility. Conclusion: 1. The EKG portion of the Lexiscan Myoview is nondiagnostic. 2. No scintigraphic evidence of reversible ischemia seen, computer derived ejection fraction is 51% with no regional wall motion abnormality, right ventricle is normal size and contractility 3. Normal Lexiscan Myoview study. Electronically signed by : Tien Jacinto MD 01/11/2021 13:59:18
--- NOTE | 2021-01-11 06:11 | CA_ITS ---
APPROVED REPORT Exam: Pharmacologic Technologist: Bianca Jones, Ht: 6 ft 2 in Wt: 217 lbs BSA: 2.25 m2 HR: 67 bpm BP: 139/82 mmHg Medical History Medications: Aspirin,,,,, Losartan,,,,, Allopurinol,,,,, HCTZ,,,,, AtorvaASTATIN,,,,, SilDENAFIL,,,,, Stress Test Details Test: LEXISCAN HR Resting HR: 71 bpm Max Heart Rate (APMHR): 155.145393 bpm Max HR Achieved: 96 bpm Target HR (85% APMHR): 131.814029 bpm % of APMHR: 61.94 Recovery HR: 77 bpm BP Resting BP: 139/82 mmHg Max BP: 157/92 mmHg Recovery BP: 152.0/89.0 mmHg ECG Resting ECG: NSR, poor R wave progression Clinical Exercise duration: 04:00 min Highest Stage Achieved: Exercise capacity: 1.0 METs Stress ECG Conclusion Symptoms: Mild chest tightness, Mild SOA and lightheaded. Arrythmias/Ectopy: None ST-T Chages: No significant changes. Conclusion: Unremarkable Lexiscan stress. Myoview images reported separately. Electronically signed by : Tien Jacinto MD 01/11/2021 13:56:08
== END ==
PROVIDERS: PCP Internal Medicine Adolescent Medicine; Visit Provider Urology
DX: E78.5 Hyperlipidemia, unspecified (principal); I11.9 Hypertensive heart disease without heart failure; I25.10 Atherosclerotic heart disease of native coronary artery without angina pectoris; N52.9 Male erectile dysfunction, unspecified; R09.89 Other specified symptoms and signs involving the circulatory and respiratory systems
CPT/HCPCS: 78452; 93017; 93306; A9502; J2785

== ENCOUNTER → 2022-02-12 08:16 | Outpatient (CLI) | payer MEDICARE, OTHER, SELFPAY | PROVIDERS: PCP Internal Medicine Adolescent Medicine; Visit Provider Internal Medicine Gastroenterology | DX: Z01.812 Encounter for preprocedural laboratory examination (principal); Z20.822 Contact with and (suspected) exposure to COVID-19; Z12.11 Encounter for screening for malignant neoplasm of colon | CPT/HCPCS: C9803; U0003; U0005 ==

== ENCOUNTER 2022-02-14 07:53 | Day surgery (SDC) | payer MEDICARE, OTHER, SELFPAY ==
[2022-02-12 12:16] VITALS: BMI 28.2
[2022-02-14 08:16] VITALS: BP 118/71; PULSE 56; RESP 18; TEMP 36.3; O2SAT 98
--- NOTE | 2022-02-14 09:07 | HMH.SCOPE ---
Procedure: Date: 02/14/22 Patient Date of :: 1955 Procedure Performed:: Colonoscopy & poypectomy with snare Indications:: History of polyps Performing Provider:: Cindy Reagan MD Referring Provider:: Raven Martinez APRN Sedation:: Propofol Procedure:: After placing the patient in the left lateral decubitus position, the colonoscopy was gently inserted into the rectum and under direct visualization advanced to the cecum which was identified by transillumination in the right lower quadrant, identification of the ileocecal valve, appendiceal orifice, and cecal strap. Color, texture, mucosa, and anatomy of the colon were carefully examined with the scope. Findings:: Anal canal: normal Rectum: normal, minor hemorrhoids Sigmoid colon: normal without polyps or inflammatory changes, small 0.5cm polyp identified and removed with snare Descending colon: normal without polyps or inflammatory changes Splenic flexure: normal Transverse colon: normal without polyps or inflammatory changes Hepatic flexure: normal Ascending colon: normal without polyps or inflammatory changes Cecum: normal Terminal ileum: not visualized Impression: Sigmoid polyp Minor hemorrhoids Specimens:: Sigmoid polyp Recommendations:: Repeat examination in about THREE years or so, sooner if clinically indicated Complications:: None Estimated blood obtained (mL): 0
[2022-02-14 09:13] VITALS: BP 105/66; PULSE 69; RESP 18; TEMP 36.2; O2SAT 97
[2022-02-14 09:23] VITALS: BP 104/70; PULSE 56; RESP 18; TEMP 36.2; O2SAT 96
[2022-02-14 09:33] VITALS: BP 109/70; PULSE 62; RESP 18; TEMP 36.2; O2SAT 97
[2022-02-14 09:43] VITALS: BP 116/76; PULSE 54; RESP 18; TEMP 36.2; O2SAT 99
[2022-02-14 09:55] VITALS: BP 116/76; PULSE 54; RESP 18; TEMP 36.2; O2SAT 99
--- NOTE | 2022-02-14 13:39 | EXP.ANES.CKL ---
[facility] Medical History CAD (coronary artery disease) ED (erectile dysfunction) HHD (hypertensive heart disease) HLD (hyperlipidemia) Polycythemia Right carotid bruit Surgical History History of cholecystectomy Stented coronary artery Family History Other Family history of cancer Family history of cardiomyopathy Social History Smoking Status: Never smoker second hand exposure: No alcohol intake: current substance use type: denies use current occupational status: employed and other Travel in the last 8 weeks: Inside the [place] household members: spouse housing: house current occupation: self-employeed current occupational exposures/hazards: No caffeine: Yes [facility] Anesthesia Checklist Patient Identification Patient Identification: Arm Band and Family Structural Data Admitted From: Direct Admit Planned Operative Procedure/s: colonoscoy Consent for Planned Operative Procedure(s) Verified: Yes Verified Documents: Surgical Consent and History and Physical Airway Assessment C-Spine Mobility Assessed: Yes TMJ Mobility Assessed: Yes Dentition: Good Dentition Neurological Assessment Level of Consciousness: Awake, Alert, Appropriate and Follows Commands Hx Seizures: No Numbness or tingling in extremities: No Genitourinary Assessment 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
== END 2022-02-14 09:55 | disposition home or self-care (01) ==
PROVIDERS: PCP Internal Medicine Adolescent Medicine; Visit Provider Internal Medicine Gastroenterology
PROC: 0DJD8ZZ Inspection of Lower Intestinal Tract, Via Natural or Artificial Opening Endoscopic (ICD-10-PCS; CPT 45378; principal; 2022-02-14 09:00)
DX: Z12.11 Encounter for screening for malignant neoplasm of colon (principal); Z86.010 Personal history of colon polyps
CPT/HCPCS: 45385; 88300

== ENCOUNTER → 2022-09-24 07:30 | Outpatient (CLI) | payer MEDICARE, OTHER, SELFPAY ==
[2022-09-24 09:30] LABS: Basophils % 0.5 % (0.1-2.0); Eosinophils # 0.7 K/mm3 (0.0-0.4); Eosinophils % 8.4 % (0.1-12.0); Hematocrit 51.6 % (42.0-52.0); Hemoglobin 17.6 g/dL (14.1-18.0); Lymphocytes % 23.3 % (10-50); Mean Corpuscular HGB Conc 34.1 g/dL (31.8-35.4); Mean Corpuscular Hemoglobin 34.2 pg (27.0-31.2); Mean Corpuscular Volume 100.5 fl (80-94); Mean Platelet Volume 8.3 fl (7.4-10.4); Monocytes # 0.7 K/mm3 (0.1-1.0); Monocytes % 8.1 % (1.7-9.3); Neutrophils # 5.1 K/mm3 (1.8-7.8); Neutrophils % 59.7 % (37.0-80.0); Platelet Count 194 K/mm3 (142-424); Red Blood Count 5.14 M/mm3 (4.60-6.20); Red Cell Distribution Width 13.2 % (11.5-17.5); White Blood Count 8.6 K/mm3 (4.8-10.8)
[2022-09-24 09:56] LABS: Chloride 103 mmol/L (98-107); Potassium 4.4 mmoL/L (3.5-5.1); Sodium 138 mmol/L (136-145)
[2022-09-24 09:59] LABS: Alanine Aminotransferase 58 U/L (12-78); Albumin Level 4.4 g/dl (3.5-5.0); Albumin/Globulin Ratio 1.5 (1.1-1.8); Alkaline Phosphatase 75 U/L (38-126); Anion Gap 12.4 mEq/L (5-15); Aspartate Amino Transferase 55 U/L (17-59); Bilirubin,Total 1.2 mg/dl (0.2-1.3); Blood Urea Nitrogen 6 mg/dl (9-20); Calcium 9.7 mg/dl (8.4-10.2); Carbon Dioxide 27 mmol/L (22.0-30.0); Cholesterol 130 mg/dl (140-200); Estimated Glomerular Filt Rate 97 ml/min (>60); GFR (African American) 117 ML/MIN (>60); Glucose 94 mg/dl (74-100); Total Protein,Serum 7.4 g/dl (6.3-8.2); Triglycerides 191 mg/dl (30-150); VLDL Cholesterol 38 mg/dL (0-40)
[2022-09-24 10:00] LABS: Chol/HDL Ratio 3.6 (1-3.5); HDL Cholesterol 36 mg/dl (40-60)
[2022-09-24 10:09] LABS: Uric Acid 5.1 mg/dl (3.5-8.5)
[2022-09-24 10:11] LABS: Direct LDL Cholesterol 64.07 mg/dL (100-129)
[2022-09-24 10:59] LABS: Vitamin B12 723 pg/mL (239-931)
== END ==
PROVIDERS: PCP Internal Medicine Adolescent Medicine; Visit Provider Nurse Practitioner Family
DX: I10 Essential (primary) hypertension (principal); E78.5 Hyperlipidemia, unspecified; E53.8 Deficiency of other specified B group vitamins; E79.0 Hyperuricemia without signs of inflammatory arthritis and tophaceous disease
CPT/HCPCS: 36415; 80053; 80061; 82607; 84550; 85025

== ENCOUNTER → 2023-04-30 11:00 | Outpatient (CLI) | payer MEDICARE, OTHER, SELFPAY ==
[2023-04-30 11:36] LABS: Basophils # 0.1 K/mm3 (0-0.2); Basophils % 0.5 % (0.1-2.0); Eosinophils # 0.5 K/mm3 (0.0-0.4); Eosinophils % 5.9 % (0.1-12.0); Hematocrit 48.6 % (42.0-52.0); Hemoglobin 17.3 g/dL (14.1-18.0); Lymphocytes # 2.2 K/mm3 (0.7-4.5); Lymphocytes % 25.2 % (10-50); Mean Corpuscular HGB Conc 35.7 g/dL (31.8-35.4); Mean Corpuscular Hemoglobin 35.4 pg (27.0-31.2); Mean Corpuscular Volume 99.2 fl (80-94); Monocytes # 0.8 K/mm3 (0.1-1.0); Monocytes % 9.4 % (1.7-9.3); Neutrophils # 5.1 K/mm3 (1.8-7.8); Platelet Count 166 K/mm3 (142-424); Red Cell Distribution Width 13.1 % (11.5-17.5); White Blood Count 8.6 K/mm3 (4.8-10.8)
[2023-04-30 12:20] LABS: Alanine Aminotransferase 71 U/L (12-78); Albumin Level 4.3 g/dl (3.5-5.0); Alkaline Phosphatase 55 U/L (38-126); Anion Gap 12.8 mEq/L (5-15); Aspartate Amino Transferase 58 U/L (17-59); Bilirubin,Direct 0.1 mg/dl (0.0-0.4); Bilirubin,Indirect 0.6 mg/dL (0.0-0.9); Bilirubin,Total 0.7 mg/dl (0.2-1.3); Bilirubin,Unconjugated 0.6 mg/dL (0.0-1.1); Blood Urea Nitrogen 7 mg/dl (9-20); Carbon Dioxide 22 mmol/L (22.0-30.0); Chloride 103 mmol/L (98-107); Chol/HDL Ratio 3.9 (1-3.5); Cholesterol 141 mg/dl (140-200); Estimated Glomerular Filt Rate 96 ml/min (>60); GFR (African American) 117 ML/MIN (>60); Glucose 106 mg/dl (74-100); HDL Cholesterol 36 mg/dl (40-60); Magnesium 1.9 mg/dl (1.6-2.3); Potassium 3.8 mmoL/L (3.5-5.1); Sodium 134 mmol/L (136-145); Total Protein,Serum 7.2 g/dl (6.3-8.2); Triglycerides 158 mg/dl (30-150); VLDL Cholesterol 32 mg/dL (0-40)
[2023-04-30 12:31] LABS: Direct LDL Cholesterol 86.57 mg/dL (100-129)
[2023-04-30 12:36] LABS: Free T4 (Free Thyroxine) 0.82 ng/dl (0.78-2.19)
[2023-04-30 12:50] LABS: Thyroid Stimulating Hormone 3.22 uIU/mL (0.465-4.68)
== END ==
PROVIDERS: PCP Internal Medicine Adolescent Medicine; Visit Provider Internal Medicine
DX: E78.5 Hyperlipidemia, unspecified (principal); I11.9 Hypertensive heart disease without heart failure; I25.10 Atherosclerotic heart disease of native coronary artery without angina pectoris; N52.2 Drug-induced erectile dysfunction
CPT/HCPCS: 36415; 80048; 80061; 80076; 83735; 84439; 84443; 85025

== ENCOUNTER 2023-12-16 09:10 | Outpatient (POV) | payer MEDICARE, OTHER, SELFPAY | END 2023-12-16 23:59 | disposition home or self-care (01) | LOC: SC 09:11 | PROVIDERS: PCP Internal Medicine Adolescent Medicine; Visit Provider Dermatology | DX: Z00.00 Encounter for general adult medical examination without abnormal findings (principal) ==

== ENCOUNTER 2024-04-28 08:47 | Outpatient (CLI) | payer MEDICARE, OTHER, SELFPAY ==
[2024-04-28 09:39] LABS: Basophils % 0.6 % (0.1-2.0); Eosinophils # 0.3 K/mm3 (0.0-0.4); Eosinophils % 4.4 % (0.1-12.0); Hematocrit 46.6 % (42.0-52.0); Hemoglobin 16.7 g/dL (14.1-18.0); Lymphocytes # 1.9 K/mm3 (0.7-4.5); Lymphocytes % 26.5 % (10-50); Mean Corpuscular HGB Conc 35.9 g/dL (31.8-35.4); Mean Corpuscular Hemoglobin 35.5 pg (27.0-31.2); Mean Corpuscular Volume 98.8 fl (80-94); Mean Platelet Volume 7.8 fl (7.4-10.4); Monocytes # 0.6 K/mm3 (0.1-1.0); Monocytes % 8.1 % (1.7-9.3); Neutrophils # 4.4 K/mm3 (1.8-7.8); Neutrophils % 60.5 % (37.0-80.0); Platelet Count 177 K/mm3 (142-424); Red Blood Count 4.72 M/mm3 (4.60-6.20); Red Cell Distribution Width 13.4 % (11.5-17.5); White Blood Count 7.3 K/mm3 (4.8-10.8)
[2024-04-28 10:06] LABS: Albumin Level 4.1 g/dl (3.5-5.0)
[2024-04-28 10:07] LABS: Chloride 107 mmol/L (98-107); Potassium 3.8 mmoL/L (3.5-5.1); Sodium 139 mmol/L (136-145)
[2024-04-28 10:09] LABS: Alanine Aminotransferase 59 U/L (12-78); Anion Gap 14.8 mEq/L (5-15); Aspartate Amino Transferase 54 U/L (17-59); Bilirubin,Unconjugated 0.7 mg/dL (0.0-1.1); Blood Urea Nitrogen 6 mg/dl (9-20); Carbon Dioxide 21 mmol/L (22.0-30.0); Estimated Glomerular Filt Rate 84 ml/min (>60); GFR (African American) 102 ML/MIN (>60)
[2024-04-28 10:10] LABS: Alkaline Phosphatase 57 U/L (38-126); Bilirubin,Direct 0.2 mg/dl (0.0-0.4); Bilirubin,Indirect 0.7 mg/dL (0.0-0.9); Bilirubin,Total 0.9 mg/dl (0.2-1.3); Calcium 9.6 mg/dl (8.4-10.2); Chol/HDL Ratio 3.3 (1-3.5); Cholesterol 125 mg/dl (140-200); Glucose 101 mg/dl (74-100); HDL Cholesterol 38 mg/dl (40-60); Total Protein,Serum 6.9 g/dl (6.3-8.2); Triglycerides 157 mg/dl (30-150); VLDL Cholesterol 31 mg/dL (0-40)
[2024-04-28 10:21] LABS: Direct LDL Cholesterol 66.37 mg/dL (100-129)
[2024-04-28 10:26] LABS: Free T4 (Free Thyroxine) 0.81 ng/dl (0.78-2.19)
[2024-04-28 10:40] LABS: Thyroid Stimulating Hormone 3.52 uIU/mL (0.465-4.68)
== END 2024-04-28 23:59 | disposition home or self-care (01) ==
LOC: LAB 08:48
PROVIDERS: PCP Internal Medicine Adolescent Medicine; Visit Provider Nurse Practitioner
DX: E78.2 Mixed hyperlipidemia (principal); I11.9 Hypertensive heart disease without heart failure; I25.118 Atherosclerotic heart disease of native coronary artery with other forms of angina pectoris; N52.2 Drug-induced erectile dysfunction
CPT/HCPCS: 36415; 80048; 80061; 80076; 83735; 84439; 84443; 85025

== ENCOUNTER 2024-07-07 08:35 | Outpatient (CLI) | payer MEDICARE, SELFPAY ==
--- NOTE | 2024-07-07 08:43 | CA_ITS ---
FINAL REPORT TECHNIQUE: Color Doppler, duplex Doppler and simeon scale sonography of the bilateral neck vasculature was performed. Velocities were measured in the carotid arteries. Stenosis evaluation based on velocity criteria. CLINICAL HISTORY: Lightheadedness COMPARISON: None FINDINGS: The peak systolic velocity of the right common carotid artery is 116 cm/sec and internal carotid artery 130 cm/sec. The diastolic velocity in the internal carotid artery is 25 cm/sec. The ICA/CCA ratio is 1.4. Visually, a small amount of plaque is seen. These findings are consistent with less than 50% stenosis. The external carotid artery is patent. The right vertebral artery is patent with antegrade flow. The peak systolic velocity of the left common carotid artery is 91 cm/sec and internal carotid artery 90 cm/sec. The diastolic velocity in the internal carotid artery is 33 cm/sec. The ICA/CCA ratio is 1. Visually, a small amount of plaque is seen. These findings are consistent with less than 50% stenosis. The external carotid artery is patent. The left vertebral artery is patent with antegrade flow. IMPRESSION: Less than 50% stenosis bilateral carotid arteries. Bilateral patent vertebral arteries. If indicated, CTA or MRA could further evaluate. Reviewed, Interpreted and Dictated by Anup Ng MD Transcribed by Annita Subramanian Authenticated and [facility]
== END 2024-07-07 23:59 | disposition home or self-care (01) ==
LOC: RT 08:39
PROVIDERS: PCP Internal Medicine Adolescent Medicine; Visit Provider Internal Medicine Adolescent Medicine
DX: R42 Dizziness and giddiness (principal)
CPT/HCPCS: 93880

== ENCOUNTER 2024-12-01 07:42 | Outpatient (CLI) | payer MEDICARE, SELFPAY ==
--- NOTE | 2024-12-01 07:44 | US_ITS ---
FINAL REPORT CLINICAL HISTORY: ELEVATED LIVER ENZYMES COMPARISON: None FINDINGS: Sonographic images of the right upper quadrant were obtained. The pancreas is partially obscured. Fatty infiltration of the liver. There is a 2.6 x 2.4 cm anechoic structure in the liver. The gallbladder is absent. There is no evidence of biliary ductal dilatation.The common duct measures 4mm. Limited images of the right kidney are unremarkable. IMPRESSION: Fatty liver with a 2.6 cm cyst. Reviewed, Interpreted and Dictated by Anup Ng MD Transcribed by Cammy Javier Authenticated and [facility]
== END 2024-12-01 23:59 | disposition home or self-care (01) ==
LOC: RAD 07:43
PROVIDERS: PCP Internal Medicine Adolescent Medicine; Visit Provider Internal Medicine Adolescent Medicine
DX: K76.0 Fatty (change of) liver, not elsewhere classified (principal); K76.89 Other specified diseases of liver
CPT/HCPCS: 76705